=== PATIENT | female | born 2000 | race Caucasian/White ===

== ENCOUNTER 2022-08-21 13:02 | Emergency (ER) | payer MEDICAID ==
[~2022-08-21] VITALS: Ht 167.6 cm; Wt 51.7 kg
[2022-08-21 13:05] VITALS: BP 144/105
--- NOTE | 2022-08-21 13:34 | NUR ---
iv 20g right ac,tolerated, blood sent
--- NOTE | 2022-08-21 13:50 | NUR ---
PT AMB TO BED 10
--- NOTE | 2022-08-21 14:11 | NUR ---
MD HOLM AT BEDSIDE FOR EVALUATION
[2022-08-21] MEDS ORDERED: KETOROLAC 30 MG/ML VIAL IVP ONE (14:15)
[2022-08-21 14:23] LABS: APPEARANCE,URINE CLEAR (CLEAR); BILIRUBIN,URINE NEGATIVE (NEGATIVE); BLOOD, URINE NEGATIVE (NEGATIVE); COLOR,URINE YELLOW (YELLOW); LEUKOCYTE ESTERASE ,URINE NEGATIVE (NEGATIVE); NITRITE, URINE POSITIVE (NEGATIVE); UGLUCOSE NEGATIVE (NEGATIVE)
[2022-08-21] MEDS ORDERED: CIPR500T4 PO (14:41)
[2022-08-21] MEDS ORDERED: IBUP-2213 PO (14:41)
--- NOTE | 2022-08-21 14:49 | NUR ---
IV removed, catheter intact and site benign. Applied folded 4x4 gauze and tape to stop bleeding.
[2022-08-21 14:50] VITALS: BP 135/80
--- NOTE | 2022-08-21 14:50 | NUR ---
Patient discharged with v/s stable. Written and verbal after care instructions FOR ACUTE BACK PAIN AND UTI given and explained. Patient alert, oriented and verbalized understanding of instructions. Ambulatory with steady gait. All questions addressed prior to discharge. ID band removed. Patient advised to follow up with PMD. Rx of CIPRO AND IBUPROFEN given. Opportunity to ask questions provided and answered.
--- NOTE | 2022-08-21 14:53 | NUR ---
The patient's care was reviewed and supervised by Norwood [place] [facility] ED, RN.
== END 2022-08-21 14:50 | disposition home or self-care (01) ==
LOC: MED 13:02
DX: N39.0 Urinary tract infection, site not specified (principal); M54.50 Low back pain, unspecified; F17.210 Nicotine dependence, cigarettes, uncomplicated; Z79.1 Long term (current) use of non-steroidal anti-inflammatories (NSAID); Z79.2 Long term (current) use of antibiotics
CPT/HCPCS: 81003; 81025; 96374; 99283; J1885